=== PATIENT | male | born 1965 | race Caucasian/White ===

== ENCOUNTER 2020-10-30 13:39 | Emergency (ER) | payer MEDICARE, OTHER ==
[2020-10-30 15:04] LABS: HEMOGLOBIN 9.6 gm/dl (14.0-17.5); RED BLOOD COUNT 3.37 M/UL (4.20-5.50); WHITE BLOOD COUNT 7.3 K/UL (4.5-11.0)
[2020-10-30 16:10] LABS: BUN/CREATININE RATIO 8 (0-10)
[2020-10-30] MEDS ORDERED: DOXYCYCLINE HY100 M2 PO (23:04)
== END 2020-10-30 18:00 | disposition home or self-care (01) ==
LOC: ER1 13:39 → CDU 17:44 → ER1 18:00
PROVIDERS: Emergency Medicine
DX: Z53.8 Procedure and treatment not carried out for other reasons (principal)
CPT/HCPCS: 80053; 82550; 82553; 83735; 83874; 84484; 85025; 85652; 86140; 87040; G0480; J2543; J3411; J3475; J7030

== ENCOUNTER 2020-10-30 18:25 | Inpatient (IN) | payer MEDICARE, OTHER ==
[~2020-10-30] VITALS: Ht 177.8 cm; Wt 94.3 kg
[2020-10-30] MEDS ORDERED: DOXYCYCLINE HY100 M2 PO (23:04)
[2020-10-31 04:54] LABS: BUN/CREATININE RATIO 6 (0-10)
--- NOTE | 2020-10-31 05:55 | NUR ---
Patient refusing Rally pack. notified
--- NOTE | 2020-10-31 06:57 | NUR ---
Patient wants to leave at this time. MD notified. MD advised patient could sign out against medical advice at this time. Patient vital signs stable, IV discontinued, Patient aware of the risks/benefits.
== END 2020-10-31 06:56 | disposition left against medical advice (07) | DRG 894 ==
LOC: ER1 18:25 → CDU 20:10 → MED SURG 4 20:10
PROVIDERS: ADMIT Internal Medicine
DX: F10.139 Alcohol abuse with withdrawal, unspecified (principal); F17.210 Nicotine dependence, cigarettes, uncomplicated; R09.02 Hypoxemia; Z28.21 Immunization not carried out because of patient refusal; Z20.822 Contact with and (suspected) exposure to COVID-19; Z91.19 Patient's noncompliance with other medical treatment and regimen; L97.519 Non-pressure chronic ulcer of other part of right foot with unspecified severity
CPT/HCPCS: 36415; 71045; 80048; 80053; 82550; 82553; 83735; 83874; 84484; 85025; 85652; 86140; 87040; 93005; 96365; 96375; 99283; 99285; G0480; J2060; J2543; J3411; J3475; J7030; U0002

== ENCOUNTER 2020-10-31 07:42 | Emergency (ER) | payer MEDICARE, OTHER ==
[~2020-10-31 07:42] MED LIST: DOXYCYCLINE HY100 M2 PO
== END 2020-10-31 08:17 | disposition left against medical advice (07) ==
LOC: ER1 07:42
DX: Z53.21 Procedure and treatment not carried out due to patient leaving prior to being seen by health care provider (principal)
CPT/HCPCS: J3370

== ENCOUNTER 2020-10-31 12:43 | Emergency (ER) | payer MEDICARE, OTHER | END 2020-10-31 14:00 | disposition home or self-care (01) | LOC: ER1 12:43 | DX: L97.519 Non-pressure chronic ulcer of other part of right foot with unspecified severity (principal); M25.562 Pain in left knee; R11.10 Vomiting, unspecified; J45.909 Unspecified asthma, uncomplicated; F17.210 Nicotine dependence, cigarettes, uncomplicated; Z88.5 Allergy status to narcotic agent; Z88.8 Allergy status to other drugs, medicaments and biological substances; Z98.890 Other specified postprocedural states; Z53.20 Procedure and treatment not carried out because of patient's decision for unspecified reasons | CPT/HCPCS: 73564; 73630; 99283 ==

== ENCOUNTER 2020-10-31 19:05 | Emergency (ER) | payer MEDICARE, OTHER ==
[2020-10-31 19:43] LABS: HEMOGLOBIN 9.2 gm/dl (14.0-17.5); RED BLOOD COUNT 3.21 M/UL (4.20-5.50); WHITE BLOOD COUNT 5.8 K/UL (4.5-11.0)
[2020-10-31 19:51] LABS: BUN/CREATININE RATIO 8 (0-10)
== END 2020-10-31 21:15 | disposition home or self-care (01) ==
LOC: ER1 19:05
PROVIDERS: Preventive Medicine Occupational Medicine
DX: M86.8X7 Other osteomyelitis, ankle and foot (principal); F10.20 Alcohol dependence, uncomplicated; M25.562 Pain in left knee; I10 Essential (primary) hypertension; F17.210 Nicotine dependence, cigarettes, uncomplicated; Z88.5 Allergy status to narcotic agent; Z88.8 Allergy status to other drugs, medicaments and biological substances; Z20.822 Contact with and (suspected) exposure to COVID-19
CPT/HCPCS: 0240U; 36415; 73562; 73620; 80053; 80307; 81001; 85025; 85652; 86140; 87086; 96374; 96375; 99284; G0480